=== PATIENT | female | born 1970 ===

== ENCOUNTER 2025-01-19 19:30 | Emergency (ER) | payer OTHER, SELFPAY ==
[2025-01-19 19:31] VITALS: BP 147/98
[2025-01-19 21:58] VITALS: BP 138/85
[2025-01-19 22:00] VITALS: BP 143/85
--- NOTE | 2025-01-19 22:19 | ED.GENMED ---
History of Present Illness
General
Chief Complaint: Fall
Time Seen by Provider: 01/19/25 22:11
History of Present Illness
History of Present Illness:
54-year-old female presents to the emergency department for evaluation of headache and low back pain after a fall. She slipped on a wet floor while in the [facility] [place] this morning, she boarded a routine flight and came to the night states
and then came straight to the emergency department. She reports a moderate left-sided headache. Denies any nausea, vomiting, vision changes, or extremity paresthesias. She is not on any antiplatelets or anticoagulants. Denies LOC with the fall.
Regarding the back pain she has occasional radiating pain to the right buttock but denies any lower extremity paresthesias or difficulty walking
Review of Systems
Review of Systems
Allergies reviewed?: Yes
All Other Systems: ROS reviewed and negative except as documented in HPI and ROS
Phy Exam
Physical Exam
Physical Exam:
GEN: Well appearing, NAD, WDWN
HEENT: Normocephalic and atraumatic, no cephalohematoma, oral mucosa moist, no scleral icterus, no nasal congestion
Cardiac: Regular rate
Lung: No respiratory distress, no tachypnea
MSK: No gross deformity or injuries. No midline lumbar spine tenderness
Skin: Good color, no pallor or jaundice, no rashes
Neuro: AO x3; CN II-XII grossly intact. BUE strength 5/5 in all sanders, sensation intact and symmetric. BLE strength 5/5 in all sanders, sensation intact and symmetric
Psych: Calm, cooperative
Course
Orders/Labs/Results
Orders:
Orders
01/19/25 22:21
Acetaminophen [Tylenol] 1,000 mg PO NOW STA
Ibuprofen [Motrin] 600 mg PO NOW STA
Vital Signs
Initial and Last Documented VS:
Initial Vital Signs
Temp Pulse Resp BP Pulse Ox
97.9 F 85 19 147/98 96
01/19/25 19:31 05/28/25 19:31 01/19/25 19:31 01/19/25 19:31 01/19/25 19:31
Last Documented Vital Signs
Temp Pulse Resp BP Pulse Ox
97.9 F 87 18 143/85 97
01/19/25 19:31 01/19/25 22:33 01/19/25 22:33 01/19/25 22:33 01/19/25 22:33
MDM/Problems Addressed
MDM/Problems Addressed:
Patient is neurologically intact with no external signs of trauma to the head or scalp. It has been more than 12 hours since her injury and she has no focal neurologic deficits or signs of increased intracranial pressure. No indication for CT of
the head at this time. Regards to the low back pain this is likely musculoskeletal in nature, do not see any indication for x-rays given that she has no midline pain
*Critical Care Note
Total Time (30-74mins, 75-104mins- exclusive of procedures): Not Applicable
ED Attending Note
-
Portions of this chart may have been created with voice recognition software.� Occasional wrong word or��sound alike� substitutions may have occurred due to the inherent limitations of voice recognition software.
Discharge Plan
Departure
Patient Disposition: Home (Routine Discharge)
Date of Disposition: 01/19/25
Time of Disposition: 22:20
Patient with high blood pressure during this ER visit?: No
Discharge Problem:
Concussion, Contusion of lower back
Instructions: Concussion, Adult (DC)
Interventions
Interventions:
*Risk Screen - Suicide Last Done: 01/19/25 19:31
*General Assessment Last Done: 01/19/25 19:31
*Neglect/Abuse Screening Last Done: 01/19/25 19:31
*ED- Fall Risk Assessment Last Done: 01/19/25 22:42
*ED COVID-19 Vaccine History Last Done: 01/19/25 22:42
*Nursing Disposition Last Done: 01/19/25 22:43
ED-Musculoskeletal Assessment Last Done: 01/19/25 22:06
ED- Neurological Assessment Last Done: 01/19/25 22:06
ED-Skin Assessment Last Done: 01/19/25 22:06
Discharge Date and Time
Discharge Date/Time: 01/19/25 22:44
Print Language: TURKISH
[2025-01-19] MEDS: TYLENOL 1000 MG PO (22:31)
[2025-01-19] MEDS: MOTRIN 600 MG PO (22:32)
[2025-01-19 22:33] VITALS: BP 143/85
[2025-01-19 22:37] VITALS: BMI 29.4
== END 2025-01-19 22:44 | disposition home or self-care (01) ==
LOC: EMR 19:30
PROVIDERS: EMERGENCY PHYSICIAN Emergency Medicine; FAMILY PHYSICIAN Physician Assistant Medical
DX: S30.0XXA Contusion of lower back and pelvis, initial encounter (principal); S06.0XAA Concussion with loss of consciousness status unknown, initial encounter; W01.0XXA Fall on same level from slipping, tripping and stumbling without subsequent striking against object, initial encounter
CPT/HCPCS: 99283